=== PATIENT | female | born 1985 | race Caucasian/White ===

== ENCOUNTER 2025-06-25 21:48 | Emergency (ER) | payer SELFPAY ==
[2025-06-25 21:50] VITALS: BP 156/105
[2025-06-25 22:14] VITALS: BP 151/96
[2025-06-25 23:00] VITALS: BP 138/101
[2025-06-25 23:02] LABS: Hematocrit 42.2 % (37.0-47.0); Hemoglobin 14.5 g/dL (12.0-16.0); Mean Corp Hgb Conc. 34.4 g/dL (33.0-37.0); Mean Corpuscular Volume 86.1 fL (81.0-99.0); Nucleated Red Blood Cells % 0 %; Platelet Count 201 10^3/uL (130-400); Red Cell Dist. Width 12.2 % (11.5-14.5)
--- NOTE | 2025-06-25 23:08 | ED.GENMED ---
ED Provider Triage
<Lam Smith MD, Resident - Last Filed: 06/26/25 00:23>
-
Patient seen by provider in Triage?: Seen in Triage
History of Present Illness
<Lam Smith MD, Resident - Last Filed: 06/26/25 00:23>
General
Chief Complaint: Medication Reaction
Source: patient
Exam Limitations: none
Time Seen by Provider: 06/25/25 22:15
History of Present Illness
History of Present Illness:
Patient is a 40-year-old female with a past medical history of endometriosis, migraines, hemorrhagic stroke in 2012 (due to control) that has been complaining of fatigue, muscle aches, palpitations, malaise since the past week. She states
that she had an IV iron infusion last Thursday ( her first one) for low ferritin levels. She is from [place] and gets her iron infusions from a doctor in [place]. She drove down to [place] to visit her family and friends on Thursday.
[facility] today and felt the same symptoms she felt last week but more magnified with the addition of palpitations and a burning sensation from her cheeks down to her toes bilaterally. No fever, chills, nausea,
vomiting, chest pain, abdominal pain, diarrhea, numbness, tingling, weakness of the extremities. Her next iron infusion is due for this thursday.
Past History
<Lam Smith MD, Resident - Last Filed: 06/26/25 00:23>
Past History
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
ED Past Surgical History: Gynecological
Social History
Tobacco: Non-smoker
Alcohol: Occasional
Personal: Single
Living: with family
Employment: Employed
Family History
Family History: Negative Early CAD
Review of Systems
<Lam Smith MD, Resident - Last Filed: 06/26/25 00:23>
Review of Systems
Allergies reviewed?: Yes
All Other Systems: ROS reviewed and negative except as documented in HPI and ROS
Phy Exam
<Lam Smith MD, Resident - Last Filed: 06/26/25 00:23>
General Physical Exam
General Presentation: well appearing and no apparent distress
General Skin: warm
General Habitus: normal
General Mental: alert
Cardiovascular Exam
Cardiovascular Exam: regular rate/rhythm and no edema
Pulmonary Exam
Pulmonary Exam: lungs clear and no respiratory distress
Gastrointestinal Exam
Gastrointestinal Exam: normal bowel sounds, non tender, soft and non distended
Neurological Exam
Neurological Exam: alert, oriented x3, CN II-XII intact, no motor deficits, normal reflexs, no sensory deficits and speech normal
Musculoskeletal Exam
Musculoskeletal Exam: full ROM and no edema
Skin Exam
Skin Exam: normal color, warm/dry and no rash
Psychiatric Exam
Psychiatric Exam: normal mood/affect
Course
<Lam Smith MD, Resident - Last Filed: 06/26/25 00:23>
Orders/Labs/Results
Orders:
Orders
06/25/25 22:56
C-Reactive Protein Urgent
Comment: ADD ON
Complete Blood Count/With Diff Urgent
Comprehensive Metabolic Panel Urgent
Creatine Phosphokinase Urgent
Comment: ADD ON
Erythrocyte Sed Rate Urgent
Comment: ADD ON
Free T4 Urgent
HCG, Serum Qualitative Screen Urgent
Comment: ADD ON
TSH Reflex To Free T4 Urgent
Comment: ADD ON
06/25/25 23:02
Add On- LAB Urgent
Tests Added?: CPK, TSH w reflex to free T-4. serum qual HCG
06/25/25 23:05
Electrocardiogram (*1) Urgent
Reason for Study: Palpitations
EKG- Treatment ONCE
06/25/25 23:28
D-Dimer Urgent
06/25/25 23:31
Add On- LAB Urgent
Tests Added?: SED RATE, CRP
Abnormal Lab Results
06/25/25
22:56
MPV 11.3 H fL
(7.4-10.4)
Immature Gran % 0.7 H %
(0-0.5)
Chloride 109 H mmol/L
(98-107)
Glucose 106 H mg/dl
(70-99)
TSH (Reflex) 9.06 H uIU/ml
(0.47-4.68)
06/25/25 22:56
06/25/25 22:56
Vital Signs
Initial and Last Documented VS:
Initial Vital Signs
Temp Pulse Resp BP Pulse Ox
97.5 F 105 18 156/105 100
06/25/25 21:50 06/25/25 21:50 06/25/25 21:50 06/25/25 21:50 06/25/25 21:50
Last Documented Vital Signs
Temp Pulse Resp BP Pulse Ox
97.5 F 83 15 132/90 97
06/25/25 21:50 06/26/25 00:15 06/26/25 00:15 06/26/25 00:00 06/26/25 00:15
<Annelise Carey, DO - Last Filed: 06/26/25 00:42>
Orders/Labs/Results
Orders:
Orders
06/25/25 22:56
C-Reactive Protein Urgent
Comment: ADD ON
Complete Blood Count/With Diff Urgent
Comprehensive Metabolic Panel Urgent
Creatine Phosphokinase Urgent
Comment: ADD ON
Erythrocyte Sed Rate Urgent
Comment: ADD ON
Free T4 Urgent
HCG, Serum Qualitative Screen Urgent
Comment: ADD ON
TSH Reflex To Free T4 Urgent
Comment: ADD ON
06/25/25 23:02
Add On- LAB Urgent
Tests Added?: CPK, TSH w reflex to free T-4. serum qual HCG
06/25/25 23:05
Electrocardiogram (*1) Urgent
Reason for Study: Palpitations
EKG- Treatment ONCE
06/25/25 23:28
D-Dimer Urgent
06/25/25 23:31
Add On- LAB Urgent
Tests Added?: SED RATE, CRP
Abnormal Lab Results
06/25/25
22:56
MPV 11.3 H fL
(7.4-10.4)
Immature Gran % 0.7 H %
(0-0.5)
Chloride 109 H mmol/L
(98-107)
Glucose 106 H mg/dl
(70-99)
TSH (Reflex) 9.06 H uIU/ml
(0.47-4.68)
06/25/25 22:56
06/25/25 22:56
Vital Signs
Initial and Last Documented VS:
Initial Vital Signs
Temp Pulse Resp BP Pulse Ox
97.5 F 105 18 156/105 100
06/25/25 21:50 06/25/25 21:50 06/25/25 21:50 06/25/25 21:50 06/25/25 21:50
Last Documented Vital Signs
Temp Pulse Resp BP Pulse Ox
97.5 F 83 15 132/90 97
06/25/25 21:50 06/26/25 00:15 06/26/25 00:15 06/26/25 00:00 06/26/25 00:15
<Lam Smith MD, Resident - Last Filed: 06/26/25 00:23>
MDM/Problems Addressed
Differential Diagnosis Includes:
transient inflammatory response, iron overload, pulmonary embolism, delayed hypersensitivity reaction
MDM/Problems Addressed:
- CBC unremarkable
- CMP unremarkable
- EKG normal
- ESR/ CRP normal
- D dimer negative
- Tsh pending
- discharge patients with instructions to f/u with pcp back in [place] and get an appointment with a gui developer for furthur concerns patient has for inflammatory causes
<Lam Smith MD, Resident - Last Filed: 06/26/25 00:23>
*Pulse Oximetry
SaO2: 100
Oxygen Mode of Delivery: Room air
Patient hypoxic: no
<Annelise Carey DO - Last Filed: 06/26/25 00:42>
*EKG
Interpreted by ED Provider?: Yes
Interpretation: normal
Comparison EKG: no changes (Unchanged from previous 2021)
Rate: normal
Rhythm: sinus
[place]: normal axis
Interval: normal interval
QRS Pattern: normal QRS
Ischemia: no ischemia
*Medical Secretary Teacher Interpretation
Rate: normal
Interpretation: normal
Rhythm: sinus
*Critical Care Note
Total Time (30-74mins, 75-104mins- exclusive of procedures): Not Applicable
ED Attending Note
<Lam Smith MD, Resident - Last Filed: 06/26/25 00:23>
-
Portions of this chart may have been created with voice recognition software.� Occasional wrong word or��sound alike� substitutions may have occurred due to the inherent limitations of voice recognition software.
<Annelise Carey DO - Last Filed: 06/26/25 00:42>
ED Attending Note
Patient seen and examined by attending physician: Yes
I performed the substantive portion of visit, reviewed & personally made and approve the management plan that is documented in note by myself or SHRUTHI.: Yes
ED Attending Note:
40-year-old woman with history of migraine headaches, fibromyalgia, chronic fatigue, anemia, endometriosis, history of cerebral venous thrombosis with hemorrhagic stroke 2013 thought to be related to control pills. She presents with multiple
seemingly unrelated complaints, all somewhat ongoing for quite some time. She follows regularly with a replenishment associate and more recently was diagnosed with B12 deficiency as well as low ferritin. A few weeks ago she was started on B12
injections and since doing so she admits that her headaches have resolved. With resolution of headaches she has been weaning amitriptyline to off. Currently takes no other medications besides B12 injections. She did receive her first IV iron
infusion on Thursday, June 19. No immediate reaction but the following day she developed generalized myalgias, fatigue, body aches. Symptoms resolved within a day or 2 and then returned today. Worse today associated with intermittent
palpitations. She does admit that she attended the [employer] game this afternoon in hot, humid weather today. She admits to consuming 1 beer, otherwise was drinking water throughout the day, attempted to stay in the shade and 'pace her self'
She resides in [place], drove to this area on Thursday, 2 days ago.
She is concerned for potential autoimmune disorder as she has had similar sporadic generalized myalgias, arthralgias.
She is currently seeking new PCP and her home town in [place]. She has never sought rheumatologic evaluation. 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
Along with migraine headaches
40-year-old female appears her stated age, awake and alert, pleasant, appears in no acute distress.
HEENT: Oral mucosa is moist. Anicteric.
Heart is regular rate and rhythm. No murmur nor rub.
Lungs are clear to auscultation. No respiratory distress.
Skin is warm and dry, normal color. Good turgor. No rash.
Extremities: No clubbing or cyanosis no edema. Peripheral pulses are full and equal. No joint effusion or tenderness. Full range of motion.
No focal neurodeficits. Gait is steady.
Concern for heat related illness, with prior history of thrombotic stroke, recent lengthy travel by car must consider PE however symptoms appear to have begun prior to travel thus less likely.
Concern for adverse reaction to IV iron. Concern for electrolyte abnormality, thyroid disorder, inflammatory disorder. No focal neurodeficits, nothing in history to suggest neurologic etiology and reassuring that migraine headaches have more
recently resolved after initiation of B12 supplementation.
Will check labs, D-dimer, inflammatory markers, EKG, orthostatic vital signs.
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
Consider imaging depending on results.
23:59
Labs are all unremarkable, within normal limits. D-dimer is negative. Inflammatory markers are negative. Minimally elevated TSH with normal free T4. CBC is normal with normal H&H at 14.5/42.4 as well as normal indices.
EKG is unremarkable showing normal sinus rhythm, normal axis, normal intervals, similar and unchanged from previous 2021.
Monitor shows normal sinus rhythm as well.
She remains hemodynamically stable, blood pressure 130/90. Normal sinus rhythm on monitor. She remains afebrile.
At this point no evidence of infectious nor inflammatory process. Nothing to indicate acute allergic reaction nor thromboembolism.
Will discharge to home with recommended prompt follow-up with replenishment associate for further evaluation. Patient should discuss PCP referral with her replenishment associate. If she continues with myalgias, arthralgias could consider rheumatology
evaluation as well.
Discharge Plan
Departure
Patient Disposition: Home (Routine Discharge)
Date of Disposition: 06/25/25
Time of Disposition: 23:59
Patient with high blood pressure during this ER visit?: No
Condition: Good
Discharge Problem:
Intermittent palpitations, Myalgia
Prescriptions:
No Action
albuterol sulfate [Ventolin HFA] 90 MCG/PUFF HFA aerosol inhaler
2 puff inhalation PRN PRN (Reason: SOB)
aspirin 81 MG tablet,chewable
81 mg PO DAILY
Referrals:
UNKNOWN - PT DOES,NOT KNOW [Family Provider]
Activity Restrictions/Additional Instructions:
labs normal, D-dimer normal, inflammatory markers normal, EKG normal, orthostatic vital signs normal. Physical exam is negative for any positive pertinent findings. Would discourage any further IV transfusion procedures. Please f/u with your PCP
within 7 days and also inquire about an appointment with a gui developer for further evaluation.
Thank you for visiting the Emergency Department at [facility].
1. Please schedule a follow up appointment as directed. Call first thing tomorrow morning to make an appointment.
2. If indicated, please take your medications as instructed and indicated on discharge paperwork.
3. If any of your symptoms do not improve, or persist, or become more severe within 6-12 hours, please return to the emergency department for further care.
4. Please return to the emergency department if you develop a headache, neck pain/stiffness, fever greater than 100.4F, chest pain, shortness of breath, persistent nausea, vomiting, slurred speech, difficulty walking, numbness/tingling, weakness,
signs of infection or any other symptoms that are worrisome to you.
Please call [phone] if you have any questions.
Interventions
Interventions:
*Risk Screen - Suicide Last Done: 06/25/25 21:50
*General Assessment Last Done: 06/25/25 21:50
*Neglect/Abuse Screening Last Done: 06/26/25 00:34
*ED- Fall Risk Assessment Last Done: 06/26/25 00:34
*ED COVID-19 Vaccine History Last Done: 06/26/25 00:34
*ED Influenza Vaccine History Last Done: 06/26/25 00:34
*Nursing Disposition Last Done: 06/26/25 00:34
ED-Skin Assessment Last Done: 06/25/25 23:35
ED- Pulmonary Assessment Last Done: 06/25/25 23:35
ED-EENT Assessment Last Done: 06/25/25 23:35
Discharge Date and Time
Print Language: DANISH
[2025-06-25 23:23] LABS: HCG, Serum Qualitative Screen Negative
[2025-06-25 23:30] LABS: ALT (SGPT) 26 U/L (0-35); AST (SGOT) 30 U/L (14-36); Albumin 4.6 g/dl (3.5-5.0); Alkaline Phosphatase 77 U/L (38-126); Blood Urea Nitrogen 10 mg/dl (7-17); Calcium 9.8 mg/dl (8.4-10.2); Carbon Dioxide 24 mmol/L (22-30); Chloride 109 mmol/L (98-107); Glucose 106 mg/dl (70-99); Potassium 4.0 mmol/L (3.5-5.1); Sodium 138 mmol/L (135-145); Total Protein 7.5 g/dl (6.3-8.2); eGFR > 60.00
--- NOTE | 2025-06-25 23:36 | EDRN ---
pt reports being at [employer] earlier today and feeling 'not right.' she drank upwards of 2L water. pt reports having her first iron infusion Thursday back home in [place] and is nervous she is having a reaction from the infusion. pt reports her 'whole
body is burning,' and 'something's off.' Dr Carey and Resident Sarah updated on conversation. Lab values pending. VSS, call [facility]ruff within reach. Visitors at bedside
[2025-06-25 23:50] LABS: C-Reactive Protein < 5.00 mg/L (0.0-10.00)
[2025-06-25 23:54] LABS: D-Dimer < 0.27 ug/mlFEU (0.00-0.50)
[2025-06-26] VITALS: BP 132/90
== END 2025-06-26 00:48 | disposition home or self-care (01) ==
LOC: EMR 21:48
PROVIDERS: EMERGENCY PHYSICIAN Emergency Medicine
DX: R00.2 Palpitations (principal); M79.7 Fibromyalgia; Z86.73 Personal history of transient ischemic attack (TIA), and cerebral infarction without residual deficits; R53.82 Chronic fatigue, unspecified; E53.8 Deficiency of other specified B group vitamins
CPT/HCPCS: 99284; 80053; 82550; 84439; 84443; 84703; 85025; 85379; 85652; 86140; 93005